=== PATIENT | male | born 1945 | race Caucasian/White ===

== ENCOUNTER 2025-06-10 07:58 | Day surgery (SDC) | payer MEDICARE, MEDICAID ==
[2025-06-10] VITALS (11 sets, daily range): BP systolic 124–162; BP diastolic 69–88; PULSE 57–68; RESP 10–18; TEMP 98.2; O2SAT 93–99
[~2025-06-10] VITALS: Ht 172.7 cm; Wt 86.1 kg
[~2025-06-10 07:58] MED LIST: LIDOcaine 1% 30ml preserv. free vial ONE; fentaNYL/PF 50MCG/1 ML 2ML syringe ONE; heparin 1,000unit/ml 10ml vial 10 ML ONE; midazolam 1 mg/ML 2ml injection ONE
[2025-06-10] MEDS ORDERED: AMLO5TAB16 PO (08:25)
[2025-06-10] MEDS ORDERED: ASPI-1265 PO (08:25)
[2025-06-10] MEDS ORDERED: EVOL140P3 SQ (08:26)
[2025-06-10] MEDS ORDERED: METO-395 PO (08:26)
[2025-06-10] MEDS ORDERED: VALS80TA32 PO (08:26)
[2025-06-10] MEDS ORDERED: OMEG-166 PO (08:27)
[2025-06-10] MEDS ORDERED: UBID100C51 PO (08:28)
[2025-06-10] MEDS ORDERED: IBUP-1986 PO (08:29)
[2025-06-10] MEDS ORDERED: KRIL1CAP40 PO (08:29)
[2025-06-10 08:59] LABS: MEAN PLATELET VOLUME 7.9 FL (7.4-10.4); RED CELL DISTRIBUTION WIDTH 13.7 % (11.5-14.5)
--- NOTE | 2025-06-10 09:01 | ELECTROCARDIOGRAPH REPORT ---
[facility] Test Date: 2025-06-10 Test Time: 09:00:11 Pat Name: LLOYD ALVAREZ Department: [facility] Patient ID: [id number] Room: Gender: M Bag Sewer: : 1945 Requested By: PERCY HESS Order Number: [id number] Reading MD: Dr. SUMIT Bearden Measurements Intervals [place] Rate: 65 P: 48 TX: 154 QRS: 64 QRSD: 88 T: 5 QT: 422 QTc: 439 Interpretive Statements Sinus rhythm Borderline T abnormalities, inferior leads Electronically Signed On 06-10-2025 17:34:[address] SUMIT Bearden Please click the below link to view image of tracing.
[2025-06-10 09:08] LABS: INR 1.1 INR
[2025-06-10 09:11] LABS: CREATININE 0.85 MG/DL (0.60-1.10); TOTAL CARBON DIOXIDE 24.8 MMOL/L (24-32); eCRCL 69 ML/MIN; eGFR 87 ML/MIN
[2025-06-10] MEDS: sodium bicarbonate 1meq/ml syr 150 ML in dextrose 5%-water 1,000 ML IV ONE (09:11)
[2025-06-10] MEDS ORDERED: midazolam 1 mg/ML 2ml injection ONE (11:40)
[2025-06-10] MEDS ORDERED: clopidogrel 300mg tablet ONE (11:58)
[2025-06-10] MEDS ORDERED: HYDROcodone/acetaminophen 5mg/325mg tablet PO PRN (12:35)
[2025-06-10] MEDS ORDERED: ondansetron/PF 4mg/2ml inj IV PRN (12:35)
[2025-06-10] MEDS ORDERED: HYDROcodone/acetaminophen 10/325mg tab PO PRN (12:35)
[2025-06-10] MEDS ORDERED: RIVA2.5T PO (12:44)
[2025-06-10] MEDS ORDERED: CLOP75TA33 PO (12:44)
--- NOTE | 2025-06-10 18:31 | CARDIOLOGY REPORT ---
DATE OF SERVICE: 06/10/2025 DICTATING PHYSICIAN: PERCY HESS DO CARDIAC CATHETERIZATION REPORT REFERRING PHYSICIAN: Leslie Concepcion MD. CLINICAL HISTORY: This 79-year-old man has bilateral lower extremity claudication, which he regards as severe and very limiting to his daily activities. He also has a nonhealing ulcerated lesion on his right great toe. Ultrasonography on 05/16/2025 demonstrated an occlusion of the right superficial femoral artery and there was also a reported occlusion of the left popliteal artery. The description of flow below the knee is very insufficient. However, because of the high-grade stenoses described in the right superficial femoral artery and the left popliteal artery, a cardiac catheterization was requested. PROCEDURES PERFORMED: * Left common femoral arterial sheath placement. * Ipsilateral/left iliac, femoral, popliteal and partial infrapopliteal angiographic runoff. * Contralateral/right iliac, femoral, and proximal popliteal arteriography. * Placement of a Destination crossover catheter in the contralateral/right external iliac artery. * Subintimal tunneling of a very long occlusion in the right superficial femoral artery. * Percutaneous balloon angioplasty (partially recanalized right superficial femoral artery. * Multiple stents placed to virtually the entire right superficial femoral artery. * Drug-eluting balloon angioplasty (right/contralateral superficial femoral artery). * Percutaneous arteriotomy closure (Perclose). * Two hours conscious sedation supervision. DESCRIPTION OF PROCEDURE: The patient was sedated with fentanyl and Versed. He was then prepared and draped in the usual manner. The left inguinal area was infiltrated with 1% lidocaine. Using a micropuncture set and a Seldinger technique, a 7-Lithuanian sheath was placed in the right common femoral artery. 3000 units of heparin were given. Using this sheath, ipsilateral angiography of the iliac, femoral, popliteal and part of the infrapopliteal circulation was performed. A 6-Lithuanian internal mammary artery was placed at the iliac bifurcation with a tip directed into the right/contralateral common iliac artery. Arteriography of the right iliac and proximal femoral system was then performed. Next, a Oxford Advantage wire was passed through the BRICE down into the femoral system and across a very proximal occlusion in the right superficial femoral artery. The wire was advanced distally to near Gato's canal. Advancement of the wire was facilitated with use of a 4-Lithuanian Oxford catheter. The true lumen of the distal most superficial femoral artery and popliteal artery were then re-entered with the Glidewire. The entire length of subintimal wire passage was then dilated with a 5 x 120 mm balloon in overlapping fashion. A test injection demonstrated reestablished patency down to the popliteal artery. Using the retained Oxford Advantage wire, the self expanding stents were positioned across the entire area of previous occlusion. These were as follows: A 6 x 120 EverFlex self-expanding stent followed by a 6 x 150 mm EverFlex stent and finally a 7 x 150 mm EverFlex stent. The entire stented area was then dilated with multiple drug-eluting Medtronic Admiral balloons beginning with a 6 x 40 mm balloon most distally, followed by a 6 x 250 mm balloon more proximally and then a 6 x 120 mm drug-eluting balloon most proximally. After the post-dilation of the stent, angiography was performed and there was very brisk runoff down to the popliteal artery. The infrapopliteal vessels were not seen, but once again, the runoff was very brisk, suggesting that there is good filling in the lower leg and foot. The Destination sheath was removed and the arterial puncture site was successfully perclosed. FINDINGS: LEFT SIDE: * Although there was quite a lot of ectasia, the left iliac system was patent and unobstructed. * The common femoral artery and the profunda femoris artery were patent but the latter with a 80% stenosis. . * The left superficial femoral artery was patent, but there were two, 60-70% stenoses along its very ectatic length. * The popliteal artery was patent and unobstructed. * There was no real filling of the infrapopliteal vessels as seen on this ipsilateral injection. RIGHT SIDE: * The common femoral artery was patent and unobstructed. * The profunda femoris artery was patent, but there was a 60% stenosis at its origin. * The superficial femoral artery was occluded approximately 3 cm distal to its origin. * There were extensive collaterals from the profunda femoris artery, which eventually demonstrated reconstitution of the far distal superficial femoral artery just above Gato's canal. * The popliteal artery was patent and unobstructed. * Runoff in the infrapopliteal vessels was suboptimal both initially and after reopening of the superficial femoral artery. INTERVENTION: Following the long subintimal passage of the Oxford Advantage wire and eventual development of a new channel with stents and drug-eluting balloon treatment, there was a very large unobstructed conduit down to the right popliteal artery. There was very brisk runoff distally, although imaging of the infrapopliteal vessels was suboptimal. RECOMMENDATIONS: Ongoing medical therapy. PERCY HESS DO TID: [id number] RECEIPT: [id number] YOJANA/JANETH MTDD
[2025-06-20] MEDS ORDERED: RIVA2.5T PO (15:37)
[2025-06-20] MEDS ORDERED: CLOP-32 PO (15:37)
[2025-06-20] MEDS ORDERED: KRIL1CAP29 PO (15:37)
[2025-06-20] MEDS ORDERED: CYAN250010 PO (15:41)
[2025-06-20] MEDS ORDERED: GLUC1TAB75 PO (15:41)
[2025-06-20] MEDS ORDERED: SAW/1TAB2 PO (15:41)
== END 2025-06-10 15:30 | disposition home or self-care (01) ==
LOC: SSTAY O 07:58
PROVIDERS: ATTEND Internal Medicine Cardiovascular Disease
DX: I70.213 Atherosclerosis of native arteries of extremities with intermittent claudication, bilateral legs (principal); E78.5 Hyperlipidemia, unspecified; E03.9 Hypothyroidism, unspecified; F43.10 Post-traumatic stress disorder, unspecified; I10 Essential (primary) hypertension; I48.0 Paroxysmal atrial fibrillation; L97.519 Non-pressure chronic ulcer of other part of right foot with unspecified severity; Z95.1 Presence of aortocoronary bypass graft; Z90.49 Acquired absence of other specified parts of digestive tract; Z98.890 Other specified postprocedural states; Z80.9 Family history of malignant neoplasm, unspecified; Z82.49 Family history of ischemic heart disease and other diseases of the circulatory system
CPT/HCPCS: 36415; 37226; 75716; 80048; 83735; 85025; 85610; 93005; A6258; C1725; C1760; C1769; C1876; C1894; C2623; J1171; J1644; J2003; J2250; J3010; J3490; J7030; J7070; Q0163; Q9967; Z7610; 36140; 36245; 36247; 99152; 99153

== ENCOUNTER 2025-06-21 05:53 | Day surgery (SDC) | payer MEDICARE, MEDICAID ==
[~2025-06-21] VITALS: Ht 172.7 cm; Wt 85.1 kg
[2025-06-21] VITALS (12 sets, daily range): BP systolic 128–171; BP diastolic 65–89; PULSE 59–73; RESP 10–19; TEMP 97.6; O2SAT 95–99
[~2025-06-21 05:53] MED LIST changes: +AMLO5TAB16 PO; +ASPI-1265 PO; +CLOP-32 PO; +CYAN250010 PO; +EVOL140P3 SQ; +GLUC1TAB75 PO; +IBUP-1986 PO; +KRIL1CAP29 PO; -LIDOcaine 1% 30ml preserv. free vial ONE; +METO-395 PO; +RIVA2.5T PO; +SAW/1TAB2 PO; +UBID100C51 PO; +VALS80TA32 PO; -fentaNYL/PF 50MCG/1 ML 2ML syringe ONE; -heparin 1,000unit/ml 10ml vial 10 ML ONE; -midazolam 1 mg/ML 2ml injection ONE
[2025-06-21] MEDS ORDERED: sodium bicarbonate 1meq/ml syr 150 ML in dextrose 5%-water 1,000 ML IV ONE (06:35)
--- NOTE | 2025-06-21 06:37 | ELECTROCARDIOGRAPH REPORT ---
[facility] Test Date: 2025-06-21 Test Time: 06:35:03 Pat Name: LLOYD ALVAREZ Department: [facility] Patient ID: [id number] Room: Gender: M Extension Service Specialist: DARYA : 1945 Requested By: PERCY HESS Order Number: [id number] Reading MD: Dr. SUMIT Bearden Measurements Intervals [place] Rate: 58 P: 37 TX: 153 QRS: 51 QRSD: 90 T: 42 QT: 429 QTc: 422 Interpretive Statements Sinus rhythm Electronically Signed On 06-21-2025 16:34:[address] SUMIT Bearden Please click the below link to view image of tracing.
[2025-06-21 07:05] LABS: MEAN PLATELET VOLUME 8.2 FL (7.4-10.4); RED CELL DISTRIBUTION WIDTH 13.6 % (11.5-14.5)
[2025-06-21 07:11] LABS: INR 1.1 INR
[2025-06-21 07:33] LABS: CREATININE 0.81 MG/DL (0.60-1.10); TOTAL CARBON DIOXIDE 23.7 MMOL/L (24-32); eCRCL 73 ML/MIN; eGFR > 90 ML/MIN
[2025-06-21] MEDS ORDERED: fentaNYL/PF 50MCG/1 ML 2ML syringe ONE (07:46)
[2025-06-21] MEDS ORDERED: LIDOcaine 1% 30ml preserv. free vial ONE (07:46)
[2025-06-21] MEDS ORDERED: midazolam 1 mg/ML 2ml injection ONE ×3 (07:46→08:48)
[2025-06-21] MEDS ORDERED: heparin 1,000unit/ml 10ml vial 10 ML ONE (07:46)
--- NOTE | 2025-06-21 12:57 | CARDIOLOGY REPORT ---
DATE OF SERVICE: 06/21/2025 DICTATING PHYSICIAN: PERCY HESS DO CARDIAC CATHETERIZATION REPORT REFERRING PHYSICIAN: Leslie Concepcion MD. CLINICAL HISTORY: This patient has had bilateral lower extremity claudication, 10 days ago, he had reopening of a long occlusion in his right superficial femoral artery. Arteriography at that time also demonstrated diffusely diseased left superficial femoral artery with a lesion complex in the distal half of the vessel narrowed by 90%. PROCEDURES PERFORMED: * Right common femoral arterial access. * Left antegrade common femoral access. * Left superficial femoral artery balloon angioplasty. * Placement of a stent, left distal superficial femoral artery. * Drug-eluting balloon angioplasty (2 stents, left superficial femoral artery). * Mynx common femoral arterial access site closure. * 90 minutes conscious sedation supervision. DESCRIPTION OF PROCEDURE: The patient was sedated with fentanyl. He was then prepared and draped in the usual manner. Using a micropuncture set in a Seldinger technique, a 7-Bolivian sheath was placed in the right common femoral artery. There followed a protracted attempt to first pass a [place] Advantage wire around very tortuous common iliac arteries and down the left superficial femoral artery. The wire was successfully passed, but repeated attempts with various catheters were unsuccessful in passing a 45 cm Destination sheath. Therefore, the right common femoral access site was successfully perclosed and the left common femoral area was infiltrated with 1% lidocaine and a 7-Bolivian sheath was placed in the common femoral artery using an antegrade approach. Arteriography of the superficial femoral artery was then performed. The [place] Advantage wire was passed through the stenosis complex in the distal half of the vessel. The lesion was then dilated in overlapping fashion with a 7 x 100 balloon. The residual stenosis was covered with first a 7-Bolivian x 60 mm EV3 self-expanding stent and most proximally with a 7 x 40 mm EV3 self-expanding stent. The entire stented complex was then post dilated using a 120 mm Medtronic Admiral drug-eluting balloon inflated to 3 minutes. Final arteriography was performed. The left antegrade access site hemostasis was achieved at the left antegrade access site using a Mynx device. CONCLUSIONS: Previously observed 90% stenosis in the distal half of the left SFA was successfully dilated, stented, and then treated with drug-eluting balloon angioplasty. Following the intervention, there was a brisk runoff distally, although filling distally was limited to what looked like an at least partially patent posterior tibial artery with the peroneal and anterior tibials being occluded. Nevertheless, there were extensive collaterals below the knee. RECOMMENDATIONS: Recommendation is going to be ongoing medical therapy. PERCY HESS DO TID: [id number] RECEIPT: [id number] YOJANA/TANO
== END 2025-06-21 14:10 | disposition home or self-care (01) ==
LOC: SSTAY O 05:53
PROVIDERS: ATTEND Internal Medicine Cardiovascular Disease
DX: I73.9 Peripheral vascular disease, unspecified (principal); L97.509 Non-pressure chronic ulcer of other part of unspecified foot with unspecified severity; I25.10 Atherosclerotic heart disease of native coronary artery without angina pectoris; I48.0 Paroxysmal atrial fibrillation; F43.10 Post-traumatic stress disorder, unspecified; I10 Essential (primary) hypertension; E78.5 Hyperlipidemia, unspecified; Z90.89 Acquired absence of other organs; Z90.49 Acquired absence of other specified parts of digestive tract; Z98.890 Other specified postprocedural states; Z79.899 Other long term (current) drug therapy; Z95.0 Presence of cardiac pacemaker; Z80.9 Family history of malignant neoplasm, unspecified
CPT/HCPCS: 36140; 36415; 37226; 80048; 83735; 85025; 85610; 93005; A6258; C1725; C1751; C1760; C1769; C1876; C1894; C2623; J1171; J1644; J2003; J2250; J3010; J7030; Q9967; 36245; 37246; 99152; 99153

== ENCOUNTER 2025-06-22 12:39 | Emergency (ER) | payer MEDICARE, MEDICAID ==
[~2025-06-22] VITALS: Ht 172.7 cm; Wt 89.6 kg
--- NOTE | 2025-06-22 12:52 | ELECTROCARDIOGRAPH REPORT ---
[facility] Test Date: 2025-06-22 Test Time: 12:45:41 Pat Name: LLOYD ALVAREZ Department: EMERGENCY ROOM Room: Gender: M Diamond Cleaver: LYNDSAY : 1945 Requested By: BISI LOWERY Order Number: [id number] Reading MD: Dr. SUMIT Bearden Measurements Intervals [place] Rate: 75 P: 75 GA: 144 QRS: 77 QRSD: 92 T: 1 QT: 368 QTc: 411 Interpretive Statements Sinus rhythm Ventricular premature complex Borderline T abnormalities, inferior leads Electronically Signed On 06-23-2025 13:52:[address] SUMIT Bearden Please click the below link to view image of tracing.
[2025-06-22 12:59] VITALS: TEMP 97.3
[2025-06-22 13:57] VITALS: BP 134/79; PULSE 92; RESP 19; O2SAT 96
--- NOTE | 2025-06-22 14:29 | Physician Documentation ---
History of Present Illness ~ Chief Complaint: Leg Pain Stated Complaint: L CALF PAIN Time Seen by MD: 13:50 Source: patient (10), old records Mode of Arrival: EMS HPI Patient comes in for evaluation of focal left lower extremity tenderness. He has a history of PID, had four stents placed in his right femoral artery on June [address] Lassiter, and then yesterday had stenting of the SFA with balloon angioplasty. He reports that he was feeling fine, until around midnight when he got up to use the bathroom and felt an acute severe pain localized to the posterior left calf, as well as a golf ball-sized swelling. He reports that there is no extension of the pain down more distally or more proximally, no skin color changes, no other complaints at this time. He had held his blood thinners on Tuesday in preparation for the procedure yesterday, and per the physician's recommendations restarted his blood thinners this morning at 10:00 a.m.. Tetanus witin 5 years: No Medication Reconciliation Allergies: Coded Allergies: No Known Allergies (Unverified , 06/21/25) Scheduled Amlodipine Besylate (Amlodipine Besylate), 1 TAB PO DAILY, (Reported) Aspirin (Aspirin), 1 TAB PO DAILY, (Reported) Clopidogrel Bisulfate (Plavix), 1 TAB PO DAILY, (Reported) Cyanocobalamin (Vitamin B-12) (Vitamin B12), 1 TAB PO DAILY, (Reported) Glucosamine/Chondro Gutierrez A (Glucosamine-Chondroitin Tab), 2 TAB PO DAILY, (Reported) Krill/[place]-3/Dha/Epa/Lipids (Krill Oil 350 mg Softgel), 1 PO DAILY, (Reported) Metoprolol Succinate (Metoprolol Succinate), 0.5 TAB PO DAILY, (Reported) Rivaroxaban (Xarelto), 1 PO BID, (Reported) Saw/Vit E/Sod Laurie/Lyc/Beta/Pyg (Prostate Health Caplet), 2 PO DAILY, (Reported) Valsartan (Valsartan), 1 TAB PO BID, (Reported) Scheduled PRN Ibuprofen (Ibuprofen), 1 TAB PO Q6H PRN for pain, (Reported) Miscellaneous Medications Evolocumab (Repatha Sureclick), SQ, (Reported) Ubidecarenone (Coq-10), 100 MG PO, (Reported) Discontinued Medications Clopidogrel Bisulfate (Clopidogrel), 1 TAB PO DAILY Discontinued Reason: Other Krill/Om-3/Dha/Epa/Phospho/Ast (Megared [place]-3 Krill Oil Sfgl), 1 CAP PO DAILY, (Reported) Discontinued Reason: Other [place]-3/Dha/Epa/Fish Oil (Fish Oil 1,000 Mg Ec Softgel), 1 CAP PO Q12H, (Reported) Discontinued Reason: Prescription changed Rivaroxaban (Xarelto), 1 TAB PO BID Discontinued Reason: Other Past Medical History Past Medical History: Coronary Artery Disease, Hypertension, BPH Smoking Status: Former smoker Alcohol Use: None Drug Use: none Review of Systems All Other Systems at this time: Reviewed and Negative Physical Exam Vital Signs: Temperature: 97.3, Source: Oral, Heart Rate: 92, Respiratory Rate: 19, BP: 134/79, Pulse Oximetry: 96, Weight: 89.600 Oxygen Flow Rate: 0 Physical Exam General: Pt is awake, alert, oriented x4 in no acute distress and well appearing. Head: Normocephalic and atraumatic. Eyes: Conjunctiva normal. ENT: Mucous membranes moist. Neck: Supple. Chest: Clear to auscultation bilaterally, without rales, rhonchi, or wheezes. There is no accessory muscle use or retractions. Cardiac: Regular rate and rhythm without murmurs, gallops or rubs. Palpation of the chest wall is normal. Abd: Soft, nondistended, nontender, with normoactive bowel sounds. No guarding or rebound. Extremities: Dopplerable pulse in the left lower extremity, capillary refill to the toes still delayed at 7 seconds. Patient has a well-localized area in the mid posterior calf, about 2 cm across, which is quite tender. There is no redness, no warmth, no fluctuance. No cord. Skin: [place], warm and dry with no significant rash appreciated. Neuro: Cranial nerves II-XII grossly intact. The gait is normal. Progress Progress Note Leg abhay wrapped, pt d'c'd with walker after it was adjusted to his height and he was trained in its use Results/Orders Results/Orders Orders - BISI LOWERY MD Vl Venous (06/22/25 14:30) Vl Arterial (06/22/25 15:06) Md Shola Aguilar (06/22/25 15:49) Completed Orders - BISI LOWERY MD Electrocardiogram (06/22/25 ) Vl Venous (06/22/25 14:30) Acetaminophen 325mg Tablet (Tylenol Tabl (06/22/25 14:30) Vl Arterial (06/22/25 15:06) Vital Signs 06/22/25 06/22/25 06/22/25 06/22/25 12:46 12:59 12:59 13:57 Temp 97.3 Pulse 77 81 92 Resp 16 16 16 19 B/P (MAP) 126/81 126/81 (96) 134/79 (97) Pulse Ox 97 99 96 O2 Flow Rate 0 0 0 Re-Evaluation Re-Evaluation : Re-Evaluation Time: 15:49 Progress Vascular finding discussed with azeem. Dr Lassiter pagerenae EKG/XRAY/CT/US/VASC/MRI Vascular : Impression Arterial Doppler showing multiphasic flow through the proximal popliteal. No flow detected in the left distal popliteal, monophasic flow in the remainder. The left SFA stent is visualized and appears patent. Venous Doppler shows no sonographic evidence for DVT, normal compressible veins. Left upper posterior calf at area of lump is a complex appearing structure measuring 1.9 x 2.3 x 2.3 cm with an area of arterial flow. Technologist was unable to connect arterial flow to any main artery, and remarks that it does not have the appearance of an aneurysm. Consults/PCP Consults/PCP : Time Call Requested: 15:49 Consult Reason/Comments: Dr. Lassiter Additional Comment The case was discussed with Dr. Lassiter, who performed the patient's angiography and stenting yesterday. We discussed the patient's presenting complaints, physical exam findings, and vascular studies performed here today. As there does not appear to be an aneurysm, and patient's stent is functioning with no evidence of associated DVT, Dr. Lassiter agrees with the plan to give some compression, and would like to see him in follow-up day after tomorrow, Tuesday. This was discussed with the patient. Medical Decision Making Additional information obtaine: N/A Findings General Diff Dx:Considerations: Include: Contusion, Hematoma, Sprain; Unlikely: Abrasion, Fracture, Laceration, Malunion, Neurovascular injury, Open fracture, Ulcer, Other Knee Diff Dx:Considerations: Unlikely: Abrasion, Arthritis, Contusion, DJD, Fracture-femur, Fracture-fibula, Fracture-patella, Fracture-tibia, Gout, Hematoma, Laceration, Meniscus injury, Neurovascular injury, Open fracture, Rheumatoid arthritis, Septic, Sprain, Sprain-MCL, Sprain-LCL, Sprain-ACL, Sprain-PCL, Other Ankle Diff Dx:Considerations: Unlikely: Abrasion, Arthritis, Contusion, DJD, Fracture-metatarsal, Fracture-fibula, Fracture-tarsal, Fracture-tibia, Gout, Hematoma, Laceration, Malunion, Neurovascular injury, Nonunion, Open fracture, Osteomyelitis, Rheumatoid arthritis, Sprain, Septic, Ulcer, Other Foot Diff Dx:Considerations: Unlikely: Abrasion, Arthritis, Cellulitis, Contusion, Dislocation, DJD, Fracture-metatarsal, Fracture-phalynx, Fracture- tarsal, Gout, Hematoma, Ingrown toenail, Laceration, Malunion, Neurovascular injury, Open fracture, Paronychia, Puncture, Rheumatoid, Sprain, Septic, Subungual hematoma, Ulcer, Other Toe Diff Dx:Considerations: Unlikely: Abrasion, Cellulitis, Contusion, Dislocation, Felon, Fracture, Hematoma, Laceration, Neurovascular injury, Open fracture, Paronychia, Subungual hematoma, Other Departure Time of Disposition: 17:05 Disposition: 01 HOME / SELF CARE / HOMELESS Impression: Primary Impression: Leg pain Qualified Codes: M79.605 - Pain in left leg Additional Impressions: Hematoma Peripheral arterial disease Condition: Stable Discharge Instructions: General Discharge Instructions Additional Instructions: You do not need to be on strict bed rest, but do not walk more than necessary, and always use the walker for stability while you are having pain. The Abhay wrap we will help give some compression to the area. There was no evidence for a blood clot deep in your calf, and your stents are open. Dr. Lassiter wants to see you on Tuesday; please call his office 1st thing to set up follow-up. Return to the emergency department if you notice color change or severe pain to your foot, if you have redness, fever, drainage, bleeding, or any other concerns. Referrals: NO PRIMARY CARE PROVIDER (PCP) Education Educated: Patient, Family Educated regarding: diagnosis, treatment Signature Scribe Signature: Attestation: BISI LOWERY MD Jun 22, 2025 14:29
--- NOTE | 2025-06-22 16:48 | VASCULAR REPORT ---
CLINICAL HISTORY: Left calf lump. Left SFA stent placed. TECHNIQUE: Left lower extremity arterial duplex exam was performed. Grayscale, color Doppler, and spectral waveform analysis was performed. COMPARISON: None FINDINGS: Left Lower Extremity: Scattered moderate atherosclerotic plaque. There is no flow visualized in the distal left popliteal artery. Left SFA stent visualized and appears patent. Multiphasic waveforms are seen throughout the rest of the left lower extremity. EXAMINATION DATA LEFT PSV (cm/sec) EXECUTIVE TALENT ACQUISITION CONSULTANT 106 Profunda 65 SFA Prox 110 SFA Mid 75 SFA Dist 47 POP A 40 proximally, no flow detected distally DIRECTOR OF LOGISTICS 8 PER 21 REJI 44 DP 26 IMPRESSION: 1. SFA stent is patent. 2. No flow detected in the distal left popliteal artery, suspected occlusion. 3. Otherwise multiphasic flow throughout the rest of the left lower extremity.
--- NOTE | 2025-06-22 17:07 | VASCULAR REPORT ---
PROCEDURE: [facility] Study Date and Requested Time: 06/22/2025 02:41 PM History: Left calf lump and pain COMPARISON: None TECHNIQUE: Multiple high resolution aponte-scale images with and without compression obtained of the left lower extremity veins, including the common femoral vein, deep femoral vein, proximal mid and distal superficial femoral vein, and popliteal vein. Additional limited images of the greater saphenous v ein also obtained. Augmentation performed as indicated. Color and spectral doppler flow images obtained as indicated. FINDINGS: No visible intraluminal venous thrombus. No evidence of incompressibility or abnormal color or spectral Doppler flow visualized in the left lower extremity veins including, the common femoral vein, deep femoral vein, proximal mid and distal superficial femoral vein, and popliteal vein. Greater saphenous vein grossly unremarkable. The right common femoral vein is patent. 1.9 x 2.3 x 2.3 cm heterogeneous structure over the left posterior calf area of lump with internal area of arterial flow but without obvious connection to any major artery. IMPRESSION: No sonographic evidence of left lower extremity deep venous thrombosis. The right common femoral vein is patent. Nonspecific complex 1.9 x 2.3 x 2.3 cm structure of the left posterior calf area of interest.
== END 2025-06-23 08:29 | disposition home or self-care (01) ==
LOC: ER 12:40
DX: S80.12XA Contusion of left lower leg, initial encounter (principal); I10 Essential (primary) hypertension; I25.10 Atherosclerotic heart disease of native coronary artery without angina pectoris; Z95.5 Presence of coronary angioplasty implant and graft; Z79.899 Other long term (current) drug therapy; Z79.82 Long term (current) use of aspirin; X58.XXXA Exposure to other specified factors, initial encounter; Y93.89 Activity, other specified; Y92.89 Other specified places as the place of occurrence of the external cause; Y99.8 Other external cause status
CPT/HCPCS: 93005; 93926; 93971; 99284; A6449